=== PATIENT | female | born 1975 | race Two or more races ===

== ENCOUNTER 2022-10-21 23:06 | Emergency (ER) | payer MEDICAID ==
[~2022-10-21] VITALS: Ht 162.6 cm; Wt 52.3 kg
[2022-10-21 23:22] VITALS: BP 128/90
== END 2022-10-22 00:08 ==
LOC: ER 23:08
DX: F10.129 Alcohol abuse with intoxication, unspecified (principal); Y90.9 Presence of alcohol in blood, level not specified
CPT/HCPCS: 82948; 99283